=== PATIENT | male | born 1970 | race Caucasian/White ===

== ENCOUNTER 2019-06-15 08:22 | Inpatient (IN) | payer MEDICARE, MEDICAID ==
[~2019-06-15] VITALS: Ht 188 cm; Wt 113.6 kg
[~2019-06-15 08:22] MED LIST: ALPR-624 PO
[2019-06-15 09:49] LABS: BASOPHILS # (AUTO) 0.1 X10'3 (0-0.2); BASOPHILS % (AUTO) 0.6 % (0-1); EOSINOPHILS # (AUTO) 0.2 X10'3 (0-0.9); EOSINOPHILS % (AUTO) 2.2 % (0-6); HEMATOCRIT 41.4 % (42.0-52.0); HEMOGLOBIN 14.2 g/dl (14.0-17.9); LYMPHOCYTES # (AUTO) 3.2 X10'3 (1.1-4.8); LYMPHOCYTES % (AUTO) 30.5 % (21-51); MEAN CORPUSCULAR HEMOGLOBIN 30.5 PG (27.0-31.0); MEAN CORPUSCULAR HGB CONC 34.3 g/dL (33.0-36.5); MEAN PLATELET VOLUME 7.8 FL (7.4-10.4); MONOCYTES # (AUTO) 0.7 X10'3 (0-0.9); NEUTROPHILS # (AUTO) 6.2 X10'3 (1.8-7.7); NEUTROPHILS % (AUTO) 59.7 % (42-75); PLATELET COUNT 192 X10'3 (140-440); RED BLOOD COUNT 4.66 X10'6 (4.70-6.10); RED CELL DISTRIBUTION WIDTH 13.2 % (11.5-14.5); WHITE BLOOD COUNT 10.4 X10'3 (4.5-11.0)
[2019-06-15 10:00] LABS: ALANINE AMINOTRANSFERASE 29 U/L (12-78); ALBUMIN 3.3 G/DL (3.4-5.0); ALBUMIN/GLOBULIN RATIO 0.9 (1.1-1.5); ALKALINE PHOSPHATASE 118 IU/L (46-116); ANION GAP 6 (8-16); ASPARTATE AMINO TRANSFERASE 18 U/L (10-37); BILIRUBIN,TOTAL 0.3 MG/DL (0.1-1.0); BLOOD UREA NITROGEN 15 MG/DL (7-18); BUN/CREATININE RATIO 16.5 (5.4-32.0); CALCIUM 8.8 MG/DL (8.5-10.1); CHLORIDE 107 MMOL/L (99-107); CREATININE 0.91 MG/DL (0.60-1.10); GLUCOSE 100 MG/DL (70-104); PARTIAL THROMBOPLASTIN TIME 43 SECONDS (22-32); POTASSIUM 3.7 MMOL/L (3.5-5.1); SODIUM 140 MMOL/L (135-145); TOTAL CARBON DIOXIDE 27.5 MMOL/L (24-32); TOTAL PROTEIN 7.1 G/DL (6.4-8.2); eGFR 89 ML/MIN
[2019-06-15 10:00] LABS: CLARITY,URINE CLEAR (Clear); COLOR,URINE STRAW (Yellow); GLUCOSE, URINE NEGATIVE (Neg); KETONES,URINE NEGATIVE (Neg); LEUKOCYTE ESTERASE ,URINE NEGATIVE (Neg); NITRITES, URINE NEGATIVE (Neg); OCCULT BLOOD,URINE NEGATIVE (Neg); PH,URINE 5.5 (4.8-8.0); PROTEIN,URINE NEGATIVE (Neg); UA COLLECTION TYPE STRAIGHT CATH; UROBILINOGEN,URINE 0.2 E.U/dL (0.2-1.0)
[2019-06-15 10:03] LABS: ETHANOL < 0.010 GM/DL (0.0-0.010); TROPONIN I < 0.04 NG/ML (0.0-0.05)
[2019-06-15 10:09] LABS: URINE AMPHETAMINE SCREEN NEGATIVE (Neg); URINE BARBITUATE SCREEN NEGATIVE (Neg); URINE BENZODIAZEPINES SCREEN POSITIVE (Neg); URINE CANNABINOID SCREEN NEGATIVE (Neg); URINE COCAINE SCREEN NEGATIVE (Neg); URINE METHADONE SCREEN POSITIVE (Neg); URINE OPIATE SCREEN NEGATIVE (Neg); URINE PHENCYCLIDINE SCREEN NEGATIVE (Neg)
[2019-06-15] MEDS ORDERED: normal saline 1000ml 1,000 ML IV ONE (10:45)
[2019-06-15] MEDS ORDERED: WARF10TA50 PO (15:09)
[2019-06-15] MEDS ORDERED: WARF1TAB83 PO (15:09)
[2019-06-15] MEDS ORDERED: METH10OR11 PO (15:30)
[2019-06-15] MEDS ORDERED: acetaminophen 650mg rectal suppository RC PRN (15:55)
[2019-06-15] MEDS ORDERED: potassium Cl 20 mEq SR tablet PO PRN ×2 (15:55)
[2019-06-15] MEDS ORDERED: acetaminophen 325mg tablet PO PRN ×2 (15:55)
[2019-06-15] MEDS ORDERED: magnesium hydroxide 30ml (MOM) UD suspension PO PRN (15:55)
[2019-06-15] MEDS ORDERED: potassium CL 10mEq/100ml bag 100 ML IV PRN ×2 (15:55)
[2019-06-15] MEDS ORDERED: mag hydrox/Alum hydrox/simeth 30ml oral suspension PO PRN (15:55)
[2019-06-15] MEDS ORDERED: ondansetron/PF 4mg/2ml inj IV PRN (15:55)
[2019-06-15] MEDS ORDERED: magnesium Cl slow-release 64mg tablet PO PRN (15:55)
[2019-06-15] MEDS ORDERED: magnesium 2GM in 50ml NS 50 ML IV PRN (15:55)
[2019-06-15] MEDS ORDERED: magnesium 4gm in 100ml NS 100 ML IV PRN (15:55)
[2019-06-15] MEDS ORDERED: bisacodyl 10mg suppository rectal RC PRN (15:55)
[2019-06-15] MEDS: normal saline 1000ml 1,000 ML IV SCH (16:07)
--- NOTE | 2019-06-15 17:26 | NUR ---
Arrived from ER via stretcher. Arouses to painful stimuli. Unable to DART- pt unable to answer questions appropriately. IVF infusing. Pt remains NPO.
[2019-06-15 17:36] VITALS: BP 106/71
--- NOTE | 2019-06-15 17:39 | NUR ---
Page sent to Dr. Ku: PAGER ID: [phone] MESSAGE: [phone]: Elroy James: Patient is agitated, trying to pull out IV, can we get a sitter order? Thanks, Marlene [phone]
[2019-06-15 18:00] VITALS: BP 110/66
--- NOTE | 2019-06-15 18:20 | NUR ---
Problems reprioritized. Patient report given, questions answered & plan of care reviewed with
--- NOTE | 2019-06-15 18:37 | NUR ---
Patient in room PCU 3009. I have received report from Jenise MAST and had the opportunity to ask questions and assume patient care.
[2019-06-15] MEDS ORDERED: warfarin 10mg tablet PO SCH (21:00)
[2019-06-15] MEDS ORDERED: warfarin 1mg tablet PO SCH (21:00)
[2019-06-15 22:00] VITALS: BP 108/73
[2019-06-16] MEDS: normal saline 1000ml 1,000 ML IV SCH (01:26)
--- NOTE | 2019-06-16 02:17 | NUR ---
Came into the room after RN stated patient was pulling off his monitors and wanting to leave. Patient was alert and oriented calling his friend to come give him a ride. When I arrived in the room the patient refused to let primary RN d/c his IV and dress but rather aggressively pulled out IV via the tubing. RN attempted to hold pressure with gauze and patient yelled he would do it himself that we had no right to put holes in his body. Patient was instructed that RN needed to dress it so it would stop bleeding and he adamantly refused. Cannula appeared to be intact on IV. Patient then grabbed the coban out of the RNs hand and wrapped it several times around the site where his IV previously was. MD was made aware and stated that if patient was alert and oriented with nothing altering his judgement that we could not keep him here. Asked patient to sign AMA paperwork and patient refused stating he never wanted to be here in the first place. Both myself and primary RN witnessed patient leave to the elevators and ambulate independently.
--- NOTE | 2019-06-16 02:18 | NUR ---
Patient was becoming more alert and stated his legs were bothering him. 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 He was planning on going for a walk. Patient was irritated and stated he wanted to go home. I educated the patient that the doctor wouldn't discharge him at this time of the night, and he would be leaving AMA. He stated he wanted to leave. The agitation increased and he ripped out his iv and tele monitor, wouldn't let me do it. He refused to let me dress his iv site, so I handed him gauze and he covered it himself. He gathered his belongings, refused to sign the AMA papers, and briskly walked out of the room and escorted himself out of the unit.
--- NOTE | 2019-06-16 03:55 | NUR ---
Patient called the floor asking about bottles of methadone that were taken from him when he came in. No notes were made about methadone in patient's chart so I informed patient that I had no record of where the methadone could be. Later after patient hung up I looked thoroughly through patient's paper chart and found a hidden pharmacy slip for medications stored in the pharmacy. Attempted to call patient and inform him as to the location of his medications but was unable to reach him at the number in his chart. Will inform day shift charge and dry house tender of the situation
[2019-06-16] MEDS ORDERED: K and/or MAG REPLACEMENT MC SCH (08:00)
== END 2019-06-16 02:24 | disposition left against medical advice (07) | DRG 917 ==
LOC: ER 08:22 → PCU 3S 17:07
PROVIDERS: ADMIT Family Medicine; ATTEND Family Medicine
DX: T40.3X2A Poisoning by methadone, intentional self-harm, initial encounter (principal); G92 Toxic encephalopathy; G89.29 Other chronic pain; J44.9 Chronic obstructive pulmonary disease, unspecified; B19.20 Unspecified viral hepatitis C without hepatic coma; Z53.21 Procedure and treatment not carried out due to patient leaving prior to being seen by health care provider; T42.4X2A Poisoning by benzodiazepines, intentional self-harm, initial encounter; F41.9 Anxiety disorder, unspecified; Z72.0 Tobacco use; Z79.01 Long term (current) use of anticoagulants; Z79.891 Long term (current) use of opiate analgesic; Z86.711 Personal history of pulmonary embolism; Z87.01 Personal history of pneumonia (recurrent); Z88.8 Allergy status to other drugs, medicaments and biological substances; Z86.718 Personal history of other venous thrombosis and embolism; Y92.89 Other specified places as the place of occurrence of the external cause; Z72.89 Other problems related to lifestyle; Z71.6 Tobacco abuse counseling; T45.0X1A Poisoning by antiallergic and antiemetic drugs, accidental (unintentional), initial encounter
CPT/HCPCS: 36415; 70450; 71045; 80053; 80305; 80320; 81003; 82140; 83880; 84443; 84484; 85025; 85610; 85730; 87081; 93005; 96360; 99285; G0378; J7030

== ENCOUNTER 2021-10-08 14:40 | Emergency (ER) | payer MEDICARE, MEDICAID ==
[~2021-10-08] VITALS: Ht 177.8 cm; Wt 127.3 kg
[~2021-10-08 14:40] MED LIST changes: -ALPR-624 PO; +METH10OR11 PO; +WARF10TA50 PO; +WARF1TAB83 PO
[2021-10-08 14:41] VITALS: BP 135/80
[2021-10-08] MEDS ORDERED: CYCL-1 PO (16:45)
[2021-10-08] MEDS ORDERED: LIDO700A32 TOP (16:45)
[2021-10-08] MEDS: ketorolac trometh. 30mg/ml inj. IV ONE ×2 (16:59→17:03)
--- NOTE | 2021-10-08 17:00 | NUR ---
PT REFUSED TORADOL.
== END 2021-10-08 17:11 | disposition home or self-care (01) ==
LOC: ER 14:40
DX: S39.012A Strain of muscle, fascia and tendon of lower back, initial encounter (principal); M62.830 Muscle spasm of back; J44.9 Chronic obstructive pulmonary disease, unspecified; F41.9 Anxiety disorder, unspecified; Z87.01 Personal history of pneumonia (recurrent); Z86.19 Personal history of other infectious and parasitic diseases; Z86.718 Personal history of other venous thrombosis and embolism; Z98.890 Other specified postprocedural states; Z72.89 Other problems related to lifestyle; Z88.8 Allergy status to other drugs, medicaments and biological substances; Z79.899 Other long term (current) drug therapy; X58.XXXA Exposure to other specified factors, initial encounter; Y93.89 Activity, other specified; Y92.89 Other specified places as the place of occurrence of the external cause; Y99.8 Other external cause status
CPT/HCPCS: 99283; J1885